=== PATIENT | male | born 1965 | race Caucasian/White ===

== ENCOUNTER 2022-04-12 18:41 | Emergency (ER) | payer BC, SELFPAY ==
[2022-04-12 18:53] VITALS: BP 154/97; PULSE 75; RESP 16; TEMP 36.3; O2SAT 96; BMI 32.3
--- NOTE | 2022-04-12 19:36 | ED.LOWEXIN ---
HPI - Extremity Injury (Lower) General Chief Complaint: Extremity Pain/Injury, Lower Stated Complaint: r calf muscle pain Time Seen by Provider: 04/12/22 18:57 History of Present Illness HPI Narrative: This 57-year-old male comes in with an injury to his right calf musculature. This happened just prior to arrival. He was pushing a vehicle and as he was leaning forward he felt a sudden pop in his right lower calf. Since then he does not have ability to push off with his toes sufficient to ambulate normally. He did walk in here by taking short steps mostly with his on injured leg. Does not report any other injury. Related Data Home Medications Medication Instructions Recorded Confirmed triamterene 37.5 cap 04/12/22 mg-hydrochlorothiazide 25 mg capsule Allergies Allergy/AdvReac Type Severity Reaction Status Date / Time No Known Drug Allergies Allergy Verified 04/12/22 18:56 Review of Systems Status of ROS: Reports: 10 or more systems reviewed and unremarkable except as noted in History and below Narrative: Constitutional: No fevers, no weight gain or loss. Eyes: No discharge. No vision changes. HENT: No congestion, no sore throat, no ear pain. Cardiovascular: No chest pain, no palpitations. Respiratory: No shortness of breath, no wheezes, no cough. Gastrointestinal: No abdominal pain, no vomiting, no diarrhea. Genitourinary: No dysuria, no hematuria. Musculoskeletal: Right calf injury as described above. Skin: No rashes, no pruritis. Neurological: No dizziness, weakness, sensory change, speech change. Endo/Heme/Allergies: No bruising or bleeding. No polydipsia. Pysch: no suicidality, no anxiety, no insomnia. All other systems reviewed and are negative. PFSH PFS Social History Smoking Status: Never smoker How often do you have a drink containing alcohol: 4 or more times a week AUDIT-C Alcohol total score: 4 Non-prescribed substance use: denies use Exam Narrative: Exam Narrative: Constitutional: Well-developed, well-nourished, no acute distress. HEENT: Normocephalic, atraumatic. Neck: Normal range of motion. Nontender. Supple. Heart: Intact distal pulses. Lungs: No chest discomfort. No wheezes, rhonchi, or rales. Abdomen: Nontender. Back: Normal range of motion. Extremities: Right calf has no significant swelling or bruising. There is tenderness at the delineation between the soleus and gastrocnemius muscles. Phillips's test is normal. There is no palpable step-off. Skin: Intact. No rash. Warm. No erythema or pallor. Neurologic: No altered sensation. No weakness. Alert and oriented. Psychiatric: No suicidality. No anxiety or depression. No insomnia. Nursing notes and vitals signs are reviewed. Const: Vital Signs, click to edit/add: Vital Signs - 24 hr 04/12/22 18:53 Temperature 97.3 F L Pulse Rate [Left P ulse Oximeter] 75 Respiratory Rate 16 Blood Pressure [Ri ght Upper Arm] 154/97 H Pulse Oximetry 96 Oxygen Delivery Me thod Room Air Course Vital Signs Vital signs: Initial Vital Signs Temperature 97.3 F L 04/12/22 18:53 Temperature Source Temporal Artery Scan 04/12/22 18:53 Pulse Rate 75 04/12/22 18:53 Respiratory Rate 16 04/12/22 18:53 Blood Pressure 154/97 H 04/12/22 18:53 Blood Pressure Mean 116 04/12/22 18:53 Blood Pressure Position Sitting 04/12/22 18:53 Pulse Oximetry 96 04/12/22 18:53 Oxygen Delivery Method 04/12/22 18:53 Vital Signs Temperature 97.3 F L 04/12/22 18:53 Pulse Rate 75 04/12/22 18:53 Respiratory Rate 16 04/12/22 18:53 Blood Pressure 154/97 H 04/12/22 18:53 Pulse Oximetry 96 04/12/22 18:53 Oxygen Delivery Method 04/12/22 18:53 Temperature 97.3 F L 04/12/22 18:53 Pulse Rate 75 04/12/22 18:53 Respiratory Rate 16 04/12/22 18:53 Blood Pressure 154/97 H 04/12/22 18:53 Pulse Oximetry 96 04/12/22 18:53 Oxygen Delivery Method 04/12/22 18:53 MDM - Extremity Injury (Lower) MDM Narrative Medical decision making narrative: This patient comes in with calf pain that is suspicious of a muscle tear. There is no palpable step-off. I did use bedside ultrasound to evaluate the area of interest and there is evidence of a small hematoma but no sign of rupture of the muscle body otherwise. An arrangement is made for follow-up with orthopedic clinic for further evaluation and treatment. The patient received crutches and a prescription for Toradol. 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 He is off for 4 days before he is scheduled to return to work. Appointment with orthopedic will hopefully occur her in this time off. Discharge Plan Discharge Clinical Impression: Injury of muscle of right lower leg Patient Disposition: Home w/ Parent or Adult Condition: Unchanged Additional Instructions: Use crutches for ambulating. Take medication as needed and indicated. Follow up with orthopedic clinic as scheduled. Prescriptions: No Action triamterene-hydrochlorothiazid 37.5-25 mg capsule Label Comments: TAKE 1 CAPSULE BY MOUTH DAILY Follow Up/Referrals: Provider,Not a Local [Primary Care Provider] - Stand Alone Forms: [employer] Info Instructions
== END 2022-04-12 19:58 | disposition home or self-care (01) ==
LOC: ED 19:49
PROVIDERS: Emergency Provider Emergency Medicine Emergency Medical Services
DX: S89.91XA Unspecified injury of right lower leg, initial encounter (principal); X58.XXXA Exposure to other specified factors, initial encounter
CPT/HCPCS: 99284

== ENCOUNTER 2024-07-19 08:59 | Outpatient (CLI) | payer BC, SELFPAY | END 2024-07-19 09:00 | disposition home or self-care (01) | PROVIDERS: PCP Family Medicine; Visit Provider Family Medicine | DX: M10.9 Gout, unspecified (principal) | CPT/HCPCS: 80053; 84550 ==

== ENCOUNTER 2025-01-09 10:00 | Outpatient (CLI) | payer BC, SELFPAY | END 2025-01-09 10:01 | disposition home or self-care (01) | LOC: NFLDREF 01-10 10:12 | PROVIDERS: PCP Family Medicine; Referring Provider Family Medicine; Visit Provider Family Medicine | DX: M10.9 Gout, unspecified (principal); Z12.5 Encounter for screening for malignant neoplasm of prostate; E03.9 Hypothyroidism, unspecified; E78.5 Hyperlipidemia, unspecified | CPT/HCPCS: 80053; 80061; 84550; G0103 ==